=== PATIENT | male | born 1935 | race Two or more races ===

== ENCOUNTER 2020-06-15 08:45 | Inpatient (IN) | payer OTHER ==
[~2020-06-15] VITALS: Ht 188 cm; Wt 93.0 kg
[~2020-06-15 08:45] MED LIST: ACTOS30 MG PO; ALTACE10 M1 PO; ATENOLOL50 MG PO; COZAAR100 MG PO; JANUVIA100 MG PO; METFORMIN HCL1000 MG PO
[2020-06-25] MEDS ORDERED: INTESTINEX680 M1 PO (11:05)
[2020-06-25] MEDS ORDERED: ULTRACET PO (11:05)
[2020-06-25] MEDS ORDERED: PEPCID AC20 MG PO (11:06)
== END 2020-06-25 11:26 | disposition home or self-care (01) | DRG 331 ==
LOC: O/R 06-22 08:00 → SURH 06-22 08:00 → SURG 06-23 16:38 → SURH 06-23 17:17 → SURG 06-23 17:43
PROVIDERS: ADMIT Surgery; ATTEND Surgery
PROC: 07BC4ZX Excision of Pelvis Lymphatic, Percutaneous Endoscopic Approach, Diagnostic (ICD-10-PCS; 2020-06-22)
PROC: 0DTF4ZZ Resection of Right Large Intestine, Percutaneous Endoscopic Approach (ICD-10-PCS; principal; 2020-06-22 09:15)
DX: D12.2 Benign neoplasm of ascending colon (principal); I10 Essential (primary) hypertension